=== PATIENT | female | born 1990 | race Caucasian/White ===

== ENCOUNTER 2021-10-31 07:57 | Outpatient (CLI) | payer BC | END 2021-10-31 07:58 | disposition home or self-care (01) | LOC: CSHULT 07:57 | PROVIDERS: ATTEND Otolaryngology Plastic Surgery within the Head & Neck | DX: E04.1 Nontoxic single thyroid nodule (principal); E04.9 Nontoxic goiter, unspecified; Z90.09 Acquired absence of other part of head and neck | CPT/HCPCS: 76536 ==